=== PATIENT | male | born 1950 | race Caucasian/White ===

== ENCOUNTER 2016-09-16 20:58 | Inpatient (IN) | payer SELFPAY ==
[~2016-09-16] VITALS: Ht 188 cm; Wt 95.9 kg
--- NOTE | ~2016-09-16 | ECH ---
Transthoracic Echocardiography Report (TTE) Demographics Patient Name BINH SANCHEZ Date of Study 09/17/2016 Patient Number [id number] Visit Number [id number] Date of 1950 Room Number 408 Accession Number [id number] Gender Male Age 66 year(s) Referring Ricardo ROBLEDO Applied Exercise Physiologist Minoo Currie [facility] Physician Stone Ruiz Physician Interpreting Ricardo ROBLEDO Splunk Architect Physician Stone Supervising Ordering Physician /BENP Nurse Stress Reed Or Wind Instrument Tuner Conclusions Contractility Score Summary Global Left Ventricular Hypokinesis was noted. Summary Technically fair exam. The estimated left ventricular ejection fraction is 30-35% in underlying atrial fibrillation. Global hypokinesis noted. Mild left ventricular hypertrophy. Mildly dilated right ventricle. Mildly reduced right ventricular function. Left atrium at upper limits of normal size. The right atrium is mildly dilated. Moderate mitral regurgitation by color Doppler. There is mild aortic regurgitation by color Doppler. Moderate tricuspid regurgitation by color Doppler. There is mild pulmonary hypertension. The pulmonary pressure (RVSP) is 38 mmHg Mild pulmonic valve regurgitation by color Doppler. The aortic root appears mildly dilated. The maximum diameter measures 3.8 cm at the sinus of valsalva. Recommendation The patient will be given the results of this study by the physician who ordered the exam. Procedure Type of Study TTE procedure:Echo Complete SF. Procedure Date Date: 09/17/2016 Start: 10:53 AM Technical Quality: Fair Indications:Atrial fibrillation and Congestive heart failure. Appropriate Use Criteria: 9 Height: 74 inches Weight: 219 pounds BSA: 2.26 m Rhythm: Atrial fibrillation HR: 99 bpm BP: 97/63 mmHg M-Mode/2D Measurements LV Diastolic Dimension: 5.73 cm LV Systolic Dimension: 5.55 cm LV Septum Diastolic: 0.99 cm LV PW Diastolic: 1.11 cm AO Root Dimension: 2.8 cm Cardiac Output: 3.25 l/min LA Dimension: 4.08 cm Cardiac Index: 1.44 l/min*m RV Diastolic Dimension: 4.05 cm LA volume index: 34 ml/m LVOT: 2.32 cm LVOT VTI: 7.77 cm RV Base: 4.8 cm LV Stroke volume: 32.83 ml RV Mid: 2.3 cm LV Stroke volume index: 14.53 ml/m RV Length: 8.9 cm Doppler Measurements AV Peak Velocity: 1 m/s MV Peak E-Wave: 1.29 m/s AV Peak Gradient: 4 mmHg AV Mean Gradient: 3.25 mmHg LVOT Peak Velocity: 0.57 m/s AV Area (Continuity):2.2 cm PV Peak Velocity: 0.67 m/s TR Velocity:2.64 m/s PV Peak Gradient: 1.8 mmHg TR Gradient:27.88 mmHg Estimated PASP: 37.88 mmHg Estimated RAP:10 mmHg Estimated RVSP: 38 mmHg RA Area: 22.01 cm Findings Left Ventricle The left ventricle is normal in size . Mild left ventricular hypertrophy. Diastolic function indeterminate due to patient's arrhythmia. Right Ventricle Mildly dilated right ventricle. Mildly reduced right ventricular function. Left Atrium Left atrium at upper limits of normal size. Right Atrium The right atrium is mildly dilated. Mitral Valve Mild thickening of the mitral valve leaflets. Moderate mitral regurgitation by color Doppler. Aortic Valve The aortic valve is mildly sclerotic. There is mild aortic regurgitation by color Doppler. Tricuspid Valve Normal tricuspid valve structure and function. Moderate tricuspid regurgitation by color Doppler. There is mild pulmonary hypertension. The pulmonary pressure (RVSP) is 38 mmHg. Pulmonic Valve Normal pulmonic valve structure and function. Mild pulmonic valve regurgitation by color Doppler. Pericardial Effusion No evidence of pericardial effusion. Miscellaneous The aortic root appears mildly dilated. The maximum diameter measures 3.8 cm at the sinus of valsalva. Pleural Effusion No evidence of pleural effusion. Contractility Score LV regional wall motion:(0-Non visualized 1-Normal 2-Hypokinesis 3-Akinesis 4-Dyskinesis 5-Aneurysm) Signature
--- NOTE | 2016-09-17 07:11 | ER ---
ADMIT: 09/17/2016 RM/LOC: 408 [facility] MR#: [id number] [id number] [place], [place] [address] BINH SANCHEZ [address] [place] [address] Emergency Room Report SEX: M AGE: 66 : 1950 DATE: 09/16/2016 CHIEF COMPLAINT: Respiratory distress. HISTORY OF PRESENT ILLNESS: The patient is a 66-year-old male with COPD, chronic AFib, bladder cancer, alcohol abuse, complaining of increasing shortness of breath, productive cough for the past 2 days. Made worse by lying down. Denies any fevers, chills, chest pain, nausea, or vomiting. PAST MEDICAL HISTORY: ILLNESSES: Atrial fibrillation, CHF, hypertension, bladder cancer, chronically anticoagulated. OPERATIONS: Multiple cystoscopies with bladder cancer, fulgurations, ablations. ALLERGIES: NONE. MEDICATIONS: Please see nurse's MAR. SOCIAL HISTORY: Smokes 1-1/2 packs per day. Occasional alcoholic beverage, none recently. Illicit drugs negative. FAMILY HISTORY: Negative per chart review. REVIEW OF SYSTEMS: A 12-point review of systems is negative for all other systems, illnesses, or operations except as outlined above. PHYSICAL EXAMINATION: VITAL SIGNS: Temp 96, pulse 172, respirations 18, BP 123/84, SaO2 of 96% on room air, weight 99.3 kg. GENERAL: Nontoxic, non-diaphoretic without jaundice or icterus. HEENT: Normocephalic. No evidence of epistaxis, rhinorrhea, or otorrhea. NECK: Supple without lymphadenopathy or thyromegaly. CHEST: Breath sounds equal. Faint expiratory wheeze. HEART: Tachycardic, irregular without murmur, gallop, or edema. ABDOMEN: Soft, nontender, and nondistended without mass or megaly. Bowel sounds hypoactive. EXTREMITIES: No evidence of Homans sign, synovitis, or dermatitis. NEURO: EOMI. PERRLA. No evidence of drift, dysarthria, or ataxia. Gait normal. MEDICAL DECISION MAKING: The patient is in rapid atrial fibrillation with normal O2 sats, minimal expiratory wheeze, responded well to DuoNeb, aerosol, magnesium, Solu-Medrol; however, required 75 mg of Cardizem bolus and 20 mg/hour infusion to maintain heart rate in the one teens. Pressure has been well maintained. Chest x-ray shows interstitial lung disease, no infiltrate. EKG confirms atrial fibrillation with RVR, lateral T-wave change. Hemoglobin 13.6, CRP 2.42, total bilirubin 2.3, AST 109, ALT 90, troponin 0.049, D-dimer 0.29, BNP 5037, INR 1.83, lactic 1.8. Discussed findings with Dr. Barahona and Dr. Prakash. Dr. Prakash gave orders to nursing staff. Due to the patient's presentation, findings, and intervention, 90 minutes of critical care is warranted. ADMIT: 09/17/2016 RM/LOC: 408 [facility] MR#: [id number] [address] [address] BINH SANCHEZ [address] [place] [address] Emergency Room Report SEX: M AGE: 66 : 1950 DIAGNOSES: 1. Acute exacerbation of chronic obstructive pulmonary disease. 2. Atrial fibrillation with rapid ventricular response. 3. Congestive heart failure. 4. Bladder cancer, status post multiple fulgurations and ablation. 5. Alcohol abuse. RECOMMENDATION: Admit inpatient telemetry for Dr. Barahona. ADMISSION/DISCHARGE CONDITION: Fair. CODE STATUS: The patient is a full code. Benny Jackson MD/ modvarun JOB #: [id number] CC: Sara Barahona MD, Attending Physician Jeffrey Koch MD, Family Physician
--- NOTE | 2016-09-19 15:51 | NUR ---
PT dc before i was able to speak with him. Contacted pt regarding meeting with [facility]'s team. Pt was over qualified for applying for medicaid. Spoke with pt about community assistance form and sent him a form via mail. pt aware of it being sent.
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
[2016-09-20] MEDS ORDERED: XARELTO20 MG PO (16:11)
[2016-09-20] MEDS ORDERED: PEPCID DPS20 MG PO (16:11)
[2016-09-20] MEDS ORDERED: DIGOX250 MCG PO (16:11)
[2016-09-20] MEDS ORDERED: LASIX DPS80 MG PO (16:11)
[2016-09-20] MEDS ORDERED: TYLENOL DPS325 MG PO (16:17)
[2016-09-20] MEDS ORDERED: TOPROL XL100 MG PO (16:17)
[2016-09-20] MEDS ORDERED: TESSALON PERLE100 M1 PO (16:17)
[2016-09-20] MEDS ORDERED: GLUCOPHAGE-DPS500 MG PO (16:18)
[2016-09-20] MEDS ORDERED: AUGMENTIN 875-1 EACH PO (16:18)
[2016-09-20] MEDS ORDERED: ATORVASTATIN CA40 MG PO (16:19)
[2016-09-20] MEDS ORDERED: ZESTRIL DPS2.5 MG PO (16:19)
--- NOTE | 2016-09-21 20:52 | CO ---
ADMIT: 09/17/2016 RM/LOC: 408 [facility] MR#: [id number] [address] [address] [place], [place] [address] JESUS SANCHEZ [address] [place] [address] Consultation SEX: M AGE: 66 : 1950 DATE OF CONSULTATION: 09/17/2016 ATTENDING PHYSICIAN: Sara Barahona CONSULTING PHYSICIAN: Stone Silva MD REASON FOR CONSULTATION: Chronic atrial fibrillation with rapid ventricular rate. HISTORY OF PRESENT ILLNESS: Jesus is a pleasant 66-year-old male, whom I had the opportunity to consult for Cardiology for chronic atrial fibrillation with rapid ventricular rate. The patient was last seen by Dr. Koch at the [facility] in December of 2015 for atrial fibrillation. At that time, he was put on Cardizem for his atrial fibrillation. The patient was also put on Toprol at that time. His last known ejection fraction was 45%. He is a former smoker, has hypertension, dyslipidemia, family history of coronary artery disease, acute on chronic systolic heart failure, and cardiomyopathy with mixed etiology. The patient presented to the hospital yesterday with increasing shortness of breath, peripheral edema, and orthopnea. Glucose is elevated at 232. His bilirubin is 1.7. His AST is elevated at 109. His albumin is also 3.4. His ALT is 90. His CK is 35. His proBNP is 5037, and his alcohol level is 12. The patient denies chest pain, palpitations, or changes in vision. PAST MEDICAL HISTORY: Significant for: 1. Acute on chronic systolic heart failure. 2. Cardiomyopathy with mixed etiology. 3. Dyslipidemia. 4. Family history of coronary artery disease. 5. Tobacco use, half a pack for 50 years. 6. Hypertension. 7. COPD. 8. Alcoholism. PAST SURGICAL HISTORY: 1. Bladder tumor removal. 2. Kidney stone treatment. 3. Lithotripsy. ALLERGIES: NO KNOWN MEDICAL ALLERGIES. CURRENT MEDICATIONS: 1. Cardizem 25 mg. 2. DuoNeb 3 mg q.4 hours. 3. Haldol 1 mg q.6 hours p.r.n. 4. Lanoxin 0.25 mg p.o. 5. Lasix 80 mg daily IV. 6. Maalox 30 mg q.6 hours p.r.n. 7. Mag sulfate 50 mg IV. ADMIT: 09/17/2016 RM/LOC: 408 [facility] MR#: [id number] [address] [address] JESUS SANCHEZ [address] [place] [address] Consultation SEX: M AGE: 66 : 1950 8. Nitro drip 250 mg IV. 9. Nitrostat 0.4 mg p.r.n. 10.Normal saline. 11.Zetia 10 mg p.r.n. 12.NovoLog low-dose sliding scale before meals and at bedtime subcutaneous. 13.Pepcid 20 mg b.i.d. p.o. 14.Solu-Medrol 80 mg q.8 hours. 15.Surfak 240 mg b.i.d. p.r.n. p.o. 16.Tessalon Perles 100 mg q.8 hours p.r.n. p.o. 17.Tylenol 650 mg q.4 hours p.r.n. p.o. 18.Vancocin 1 g q.12 hours IV. 19.Xarelto 20 mg p.m. p.o. 20.Zosyn 3.375 g q.8 hours IV. FAMILY HISTORY: Father had a myocardial infarction at age 68. He also had diabetes. His mother had a coronary stent placement. She also of coronary artery disease at 78, and she also had diabetes. 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 He does not use any special diet. He says he rarely consumes alcohol. He denies drug use. He has 3-4 sodas per day on a regular basis. The patient is still an everyday smoker. The patient admits that he never fully smokes a full cigarette. The patient does not want to stop smoking at this time. REVIEW OF SYSTEMS: GENERAL: Denies fatigue, fever, chills, sweats, rash, or weight loss. EYES: Denies double vision, blurred vision, cataracts, or glaucoma. ENT: Denies hearing loss or problems with mouth or throat. He says he also has sinus pressure. Drainage down his throat is also causing him to feel nauseous. He admits to nasal drainage. PULMONARY: Denies sputum production, asthma, emphysema or bronchitis. Denies snoring loudly, wakefulness at night, or fatigue upon awakening. The patient reports that he has an increasing productive cough that started couple days ago. The patient also admits to a pleuritic chest pain. GASTROINTESTINAL: Denies heartburn or difficulty swallowing. Denies dark or bloody stools. No history of ulcers, hiatal hernia, or gallbladder or liver disease. He says he also has diarrhea. GENITOURINARY: Denies dysuria, hematuria, nocturia, urinary tract infection, or kidney stones. Denies history of renal insufficiency or failure. MUSCULOSKELETAL: Denies history of arthritis or gout. Denies muscle or joint pains. ENDOCRINE: Denies history of thyroid dysfunction or diabetes. HEMATOLOGIC: Denies history of anemia, easy bruising, or cancer. NEUROLOGIC: Denies chronic headaches, dizziness, syncope, stroke, seizures or numbness or tingling. PSYCHIATRIC: Denies history of mental illness or feelings of depression. PHYSICAL EXAMINATION: VITAL SIGNS: BP 97/63, pulse 115, respirations are 15, ADMIT: 09/17/2016 RM/LOC: 408 [facility] MR#: [id number] [address] [address] JESUS SANCHEZ [address] [place] [address] Consultation SEX: M AGE: 66 : 1950 temperature is 96.1, O2 saturation is 95% on 2L via nasal cannula. GENERAL: The patient is alert and oriented x3, in no acute distress, pleasant. SKIN: Warm and dry. Generalized jaundice. EYES: Sclerae clear. No xanthelasmas. ENT: Oral mucosa is pink and moist. No jugular venous distention or carotid bruits. CHEST: Respirations are even and unlabored. Lungs are clear to auscultation. HEART: Irregularly irregular. Tachycardia. ABDOMEN: Soft and nontender. Obese. MUSCULOSKELETAL: Gait is normal. EXTREMITIES: Peripheral pulses palpable. No clubbing or cyanosis. Mild edema. PSYCHIATRIC: Alert and oriented. Mood and affect are appropriate. DIAGNOSTIC DATA: Sodium is 132, carbon dioxide is 21, urea is 26, glucose is 232, albumin is 3.4, AST is 109, ALT is 90, bilirubin is 1.70, GFR is 58, CK is 35, proBNP is 5037, digoxin level is 0.42, alcohol is 12, PLP is 2.42, pro- time is 19.4, INR is 1.83. Red blood cells are 4.47, hemoglobin is 13.3. ASSESSMENT AND PLAN: 1. Permanent atrial fibrillation with rapid ventricular response, may be secondary to acute bronchitis. We will resume home Toprol and wean the Diltiazem. The patient is also on Xarelto for anticoagulation. We will order an echocardiogram for today. 2. Cardiomyopathy, likely due to the tachycardia. Ejection fraction one year ago was 45%. We will order the valvular echo for the tachycardia. 3. Non substantial coronary artery disease by cath, 06/04/2015. 4. Elevated liver function enzymes. 5. Tobacco abuse. 6. Edema, IV Lasix. The patient's exacerbation of chronic atrial fibrillation with rapid ADMIT: 09/17/2016 RM/LOC: [address] [place] [address] MR#: [id number] [address] [facility] [address] [place], [place] [address] JESUS SANCHEZ [address] [place] [address] Consultation SEX: M AGE: 66 : 1950 ventricular rate seems to be due to the current acute upper respiratory infection. He is currently not showing any signs of chest pain, palpitations, or vision changes. I do recommend that we titrate the patient off the Diltiazem and switch him over to his home med of Toprol. At this time, we will order limited echo to assess the tachycardia and heart function. I very much appreciate the Cardiology consult, and we will continue to follow the patient closely. Thank you for the consult. I have read and agreed with the documentation that has been completed regarding this visit. By signing this record, I attest that the documentation was completed in my physical presence and has been accurate record of the encounter. SHWETA Damon Student / Stone Silva MD / garry JOB #: [id number] CC: Sara Barahona, Attending Physician Jeffrey Koch, Family Physician
--- NOTE | 2016-10-03 09:09 | DS ---
ADMIT: 09/17/2016 RM/LOC: [facility] MR#: [id number] [id number] [place], [place] [id number] BINH SANCHEZ [address] [place] [address] General Discharge Summary SEX: M AGE: 66 : 1950 ADMISSION DATE: 09/17/2016 DISCHARGE DATE: 09/19/2016 CONSULTS: Cardiology. PROCEDURES: None. FINAL DIAGNOSES: 1. Atrial fibrillation with rapid ventricular response. 2. Acute on chronic congestive heart failure. 3. Chronic obstructive pulmonary disease exacerbation. 4. Hyperlipidemia. 5. Hypertension. 6. 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 7. Hyponatremia during hospital stay as well as type 2 diabetes diagnosed during this hospital stay. 8. Shortness of breath. HISTORY OF PRESENT ILLNESS: 1. The patient presented to the ER for worsening shortness of breath, swelling in his lower extremities, as well as orthopnea. The patient states that he was having very difficulty breathing secondary to his coughing. This seemed to worsen even more when he was lying flat at night. He was not sleeping very well. The patient does have a history of COPD and CHF. His most recently charted echo showed an EF of 45% in December 2015. The patient was started on oxygen for his hypoxia. He was also noted to be tachycardic in the 170s and was in atrial fibrillation with RVR. The patient states he is always in atrial fibrillation, but usually his heart rate is not that high. He does note he was having some palpitations, and so patient was started on a Cardizem drip in the ER to help control his rate which greatly lowered rate. Problem atrial fibrillation with RVR. With the Cardizem drip as well as patient's home dose of Toprol, tachycardia was able to be lowered. He was titrated off the Cardizem drip and we put on p.o. medications to control his rate. The patient's difficulty with breathing did improve slightly with better control of his atrial fibrillation. However, the patient also had improvement of his breathing with IV Lasix, getting fluid off his lungs as well as his lower extremities. The patient also still continued to cough but did have some improvement with Tessalon Perles as far as able to being able to fall sleep at night without coughing constantly. 2. Chronic obstructive pulmonary disease exacerbation. The patient was started on IV steroids and IV antibiotics, and then he was titrated down and was placed on p.o. antibiotics. He did have some slight improvement in his breathing at that time. The patient is a continuous smoker, however. 3. Also during hospitalization, the patient's blood sugars were noted to be elevated. The patient was on IV steroids which could be contributing, but hemoglobin A1c showed to be 10.4, indicating that the patient does have type 2 diabetes. He was started on metformin on an outpatient basis ADMIT: 09/17/2016 RM/LOC: [address] [facility] MR#: [id number] [address] [place] [id number] BINH SANCHEZ [facility] [place] [address] General Discharge Summary SEX: M AGE: 66 : 1950 and will have follow up for that. The patient also had episode of hyponatremia likely due to partially of the volume overload that he had. This was easily fixed with fluid restriction and hypertonic saline. The patient also had an echo that showed a new EF of 30-35%. DISCHARGE MEDICATIONS: Medications at the time of discharge include: 1. Lanoxin 0.25 mg p.o. 2. Lasix 80 mg daily. 3. Pepcid 20 mg b.i.d. 4. Toprol-XL 100 mg daily. 5. Tessalon Perles 100 mg as needed for cough every 8 hours. 6. Tylenol 325 as needed. 7. Metformin 500 mg daily for 1 week and then b.i.d. 8. Augmentin 875 b.i.d. for 7 more days. 9. Atorvastatin 40 mg daily. 10.Lisinopril 2.5 mg daily. FOLLOWUP APPOINTMENT: Include [address] Barahona. He will also get a BMP at that time. CODE STATUS: Full. Also mention that the patient has two sebaceous cysts and referral was done out to Dermatology to help take care of those cysts at his request. The patient is also to follow up with Cardiology in 2-3 weeks. Monserrat Prakash MD Resident / Sara Barahona MD / arianal JOB #: [id number] CC: Sara Barahona MD, Attending Physician Sara Barahona MD, Family Physician
== END 2016-09-19 08:10 | disposition home or self-care (01) | DRG 291 ==
LOC: ER 20:58 → 4PCU 09-17 00:20
PROVIDERS: ADMIT Family Medicine
PROC: HZ2ZZZZ Detoxification Services for Substance Abuse Treatment (ICD-10-PCS; principal; 2016-09-17)
DX: I11.0 Hypertensive heart disease with heart failure (principal); J96.01 Acute respiratory failure with hypoxia; N17.9 Acute kidney failure, unspecified; J44.0 Chronic obstructive pulmonary disease with (acute) lower respiratory infection; E87.1 Hypo-osmolality and hyponatremia; R17 Unspecified jaundice; J44.1 Chronic obstructive pulmonary disease with (acute) exacerbation; I42.9 Cardiomyopathy, unspecified; I48.2 Chronic atrial fibrillation; I50.23 Acute on chronic systolic (congestive) heart failure; E11.9 Type 2 diabetes mellitus without complications; J20.9 Acute bronchitis, unspecified; C67.9 Malignant neoplasm of bladder, unspecified; F17.210 Nicotine dependence, cigarettes, uncomplicated; F10.21 Alcohol dependence, in remission; R79.89 Other specified abnormal findings of blood chemistry; E78.5 Hyperlipidemia, unspecified; I25.10 Atherosclerotic heart disease of native coronary artery without angina pectoris; Z82.49 Family history of ischemic heart disease and other diseases of the circulatory system